=== PATIENT | female | born 1995 | race Caucasian/White ===

== ENCOUNTER 2018-09-06 23:51 | Emergency (ER) | payer OTHER ==
[~2018-09-06] VITALS: Ht 170.2 cm; Wt 97.5 kg
[2018-09-07] MEDS ORDERED: FAMOTIDINE 20 MG (PEPCID) TABLET PO STA (00:23)
[2018-09-07] MEDS ORDERED: LIDOCAINE 2% VISCOUS 15 ML UDC PO ONE (00:30)
[2018-09-07] MEDS ORDERED: KETOROLAC 30 MG/ML VIAL IVP ONE ×2 (00:30→01:30)
[2018-09-07] MEDS ORDERED: ANTACID SUSP 30 ML UDC (MYLANTA) PO ONE (00:30)
--- NOTE | 2018-09-07 00:30 | ED Abdominal Pain ---
General Chief Complaint: Abdominal/GI Problems Stated Complaint: PAIN AROUND BELLY BUTTON Source of Information: Patient, Family (mom) Exam Limitations: No Limitations History of Present Illness Date Seen by Provider: Sep 07, 2018 Time Seen by Provider: 00:16 Initial Comments The patient presents with her mother by private conveyance to the ER with chief complaint. The little abdominal pain sometimes radiating down her right quadrant abdomen. She's expresses intermittently for the past week however the last 2 days, worse. No nausea. Tylenol or broken are not helpful she's not had any to day. She is not taking anything else sides a Zantac this morning which did not help. Her last menstrual period was 2 weeks ago. She doesn't pain seems to be worse at night and has been included with food. In March she was worked up for gallbladder and had a HIDA scan and ultrasound were both negative. No endoscopy or abdominal surgeries. No trauma. She rates the pain as a 6 out of 10 presently. Allergies and Home Medications Allergies Coded Allergies: No Known Drug Allergies (Unverified , 09/07/18) Patient Home Medication List Home Medication List Reviewed: Yes Review of Systems Review of Systems Constitutional: chills; No diaphoresis, No fever, No malaise EENTM: No Blurred Vision, No Double Vision Respiratory: Denies Cough, Denies Shortness of Air Cardiovascular: Denies Chest Pain, Denies Edema Gastrointestinal: See HPI, Abdominal Pain; Denies Constipated, Denies Diarrhea, Denies Nausea Genitourinary: Denies Burning, Denies Discharge Musculoskeletal: No back pain, No joint pain Past [id number] Hx Patient Social History Alcohol Use: Denies Use Recreational Drug Use: No Smoking Status: Never a Smoker Recent Foreign Travel: No Contact w/Someone Who Travel: No Physical Exam Vital Signs Vital Signs - First Documented 09/07/18 00:11 Temp 96.8 Pulse 95 Resp 18 B/P (MAP) 108/67 (81) Pulse Ox 97 O2 Delivery Room Air Capillary Refill : Height/Weight/BMI Height: '" Weight: lbs. oz. kg; BMI Method: General Appearance: WD/WN, no apparent distress HEENT: PERRL/EOMI, pharynx normal Neck: non-tender, full range of motion, supple, normal inspection Respiratory: lungs clear, normal breath sounds, no respiratory distress, no accessory muscle use Cardiovascular: normal peripheral pulses, regular rate, rhythm, no edema Peripheral Pulses: 2+ Dorsalis Pedis (R), 2+ Left Dors-Pedis (L) Gastrointestinal: normal bowel sounds, soft; No guarding, No rebound; tenderness (mild right lower quadrant abdominal tenderness), other (negative psoas sign or rebound tenderness over McBurney's point. Negative for Flowers s ign, Rovsing sign.) Neurologic/Psychiatric: alert, normal mood/affect, oriented x 3 Skin: normal color, warm/dry Progress/Results/Core Measures Results/Orders Lab Results Laboratory Tests Test 09/07/18 00:30 09/07/18 00:48 Range/Units Urine Color YELLOW Urine Clarity SLIGHTLY CLOUDY Urine pH 5 5-9 Urine Specific [place] 1.020 1.016-1.022 Urine Protein NEGATIVE NEGATIVE Urine Glucose (UA) NEGATIVE NEGATIVE Urine Ketones NEGATIVE NEGATIVE Urine Nitrite NEGATIVE NEGATIVE Urine Bilirubin NEGATIVE NEGATIVE Urine Urobilinogen NORMAL NORMAL MG/DL Urine Leukocyte Esterase 3+ H NEGATIVE Urine RBC (Auto) 1+ H NEGATIVE Urine RBC NONE /HPF Urine WBC 2-5 /HPF Urine Squamous Epithelial Cells 5-10 /HPF Urine Crystals NONE /LPF Urine Bacteria LARGE H /HPF Urine Casts NONE /LPF Urine Mucus NEGATIVE /LPF Urine Culture Indicated NO White Blood Count 9.7 4.3-11.0 10^3/uL Red Blood Count 4.34 L 4.35-5.85 10^6/uL Hemoglobin 12.8 11.5-16.0 G/DL Hematocrit 39 35-52 % Mean Corpuscular Volume 89 80-99 FL Mean Corpuscular Hemoglobin 30 25-34 PG Mean Corpuscular Hemoglobin Concent 33 32-36 G/DL Red Cell Distribution Width 13.8 10.0-14.5 % Platelet Count 248 130-400 10^3/uL Mean Platelet Volume 10.1 7.4-10.4 FL Neutrophils (%) (Auto) 63 42-75 % Lymphocytes (%) (Auto) 29 12-44 % Monocytes (%) (Auto) 8 0-12 % Eosinophils (%) (Auto) 1 0-10 % Basophils (%) (Auto) 0 0-10 % Neutrophils # (Auto) 6.1 1.8-7.8 X 10^3 Lymphocytes # (Auto) 2.8 1.0-4.0 X 10^3 Monocytes # (Auto) 0.7 0.0-1.0 X 10^3 Eosinophils # (Auto) 0.1 0.0-0.3 10^3/uL Basophils # (Auto) 0.0 0.0-0.1 10^3/uL Sodium Level 140 135-145 MMOL/L Potassium Level 3.8 3.6-5.0 MMOL/L Chloride Level 104 98-107 MMOL/L Carbon Dioxide Level 25 21-32 MMOL/L Anion Gap 11 5-14 MMOL/L Blood Urea Nitrogen 10 7-18 MG/DL Creatinine 0.66 0.60-1.30 MG/DL Estimat Glomerular Filtration Rate > 60 BUN/Creatinine Ratio 15 Glucose Level 106 H 70-105 MG/DL Calcium Level 9.9 8.5-10.1 MG/DL Corrected Calcium 9.7 8.5-10.1 MG/DL Total Bilirubin 0.4 0.1-1.0 MG/DL Aspartate Amino Transf (AST/SGOT) 14 5-34 U/L Alanine Aminotransferase (ALT/SGPT) 13 0-55 U/L Alkaline Phosphatase 83 40-136 U/L C-Reactive Protein High Sensitivity 0.73 H 0.00-0.50 MG/DL Total Protein 7.0 6.4-8.2 GM/DL Albumin 4.3 3.2-4.5 GM/DL Lipase 14 8-78 U/L My Orders Orders - ETELVINA FLORES Ua Culture If Indicated (09/06/18 23:55) Cbc With Automated Diff (09/07/18 00:21) Comprehensive Metabolic Panel (09/07/18 00:21) Hs C Reactive Protein (09/07/18 00:21) Lipase (09/07/18 00:21) Ketorolac Injection (Toradol Injection) (09/07/18 00:30) Lidocaine 2% Viscous 15 Ml (Xylocaine Vi (09/07/18 00:30) Famotidine Tablet (Pepcid Tablet) (09/07/18 00:23) Antacid Suspension (Mylanta Suspension (09/07/18 00:30) Ketorolac Injection (Toradol Injection) (09/07/18 01:30) Medications Given in ED Current Medications Medications Dose Ordered Sig/Saira Route Start Time Stop Time Status Last Admin Dose Admin Al Hydrox/Mg Hydrox/Simethicone 30 ml ONCE ONCE PO 09/07/18 00:30 09/07/18 00:31 DC 09/07/18 00:29 30 ML Lidocaine HCl 15 ml ONCE ONCE PO 09/07/18 00:30 09/07/18 00:31 DC 09/07/18 00:29 15 ML Vital Signs/I&O 09/07/18 00:11 Temp 96.8 Pulse 95 Resp 18 B/P (MAP) 108/67 (81) Pulse Ox 97 O2 Delivery Room Air Progress Progress Note #1: Time: 00:30 Progress Note Nonsurgical, nonacute abdomen on examination without evidence of mesenteric involvement. We will try a GI cocktail. If that does not help then we'll try Toradol. She has aseptic vital signs. If her lab work is unremarkable including blood urine and lipase etc. then would be reasonable for her to finish working her up with her primary care doctor outpatient. Progress Note #2: Time: 01:44 Progress Note Repeat examination unremarkable. Nonacute abdomen. Mild tenderness around the umbilicus without any mesenteric signs. Vital signs are aseptic. Labs are unremarkable. Patient is looking for a work note so we will provide her with that. Plan to give her a shot of Toradol for her discomfort and instruct her to get some follow-up in the next 2 weeks. Carafate and pantoprazole. Departure Impression Primary Impression: Abdominal pain Qualified Codes: R10.33 - Periumbilical pain Disposition: HOME, SELF-CARE Condition: Improved Departure-Patient Inst. Decision time for Depature: 01:47 Referrals: [facility] (PCP/Family) Primary Care Physician Patient Instructions: Acute Abdomen (Belly Pain), Adult (DC) Add. Discharge Instructions: Avoid spicy greasy foods. Start the Carafate 1 tablet 30 minutes prior to meals and at bedtime for the next 2 weeks. Pantoprazole 1 tablet daily for the next 2-4 weeks. Tylenol 1000 mg every 8 hours as needed for pain. Ibuprofen 800 mg every 8 hours as needed for pain. You may also use antacids, Gas-X, Pepto-Bismol etc. Return to the ER if you experience intractable nausea vomiting, pain or ever especially above 102.5. All discharge instructions reviewed with patient and/or family. Voiced understanding. Scripts Sucralfate (Carafate) 1 Gm Tablet 1 GM PO QIDACHS for 14 Days, #56 TAB 0 Refills Prov: ETELVINA FLORES 09/07/18 Pantoprazole Sodium (Pantoprazole Sodium) 40 Mg Tablet.dr 40 MG PO DAILY for 30 Days, #30 TAB 0 Refills Prov: ETELVINA FLORES 09/07/18 Ondansetron (Ondansetron Odt) 4 Mg Tab.rapdis 4 MG PO Q6H PRN for NAUSEA/VOMITING-1ST LINE, #10 TAB 0 Refills Prov: ETELVINA FLORES 09/07/18 Work/School Note: Work Release Form Date Seen in the Emergency Department: Sep 07, 2018 Return to Work: Sep 09, 2018 Restrictions: No Restrictions ETELVINA FLORES Sep 07, 2018 00:29
[2018-09-07 00:48] LABS: BILIRUBIN,URINE NEGATIVE (NEGATIVE); CLARITY,URINE SLIGHTLY CLOUDY; COLOR,URINE YELLOW; GLUCOSE, URINE (UA) NEGATIVE (NEGATIVE); KETONES,URINE NEGATIVE (NEGATIVE); LEUKOCYTE ESTERASE ,URINE 3+ (NEGATIVE); NITRITE,URINE NEGATIVE (NEGATIVE); PH,URINE 5 (5-9); PROTEIN,URINE NEGATIVE (NEGATIVE); UROBILINOGEN,URINE NORMAL (NORMAL)
[2018-09-07 00:56] LABS: BASOPHILS % (AUTO) 0 % (0-10); EOSINOPHILS # (AUTO) 0.1 10^3/uL (0.0-0.3); EOSINOPHILS % (AUTO) 1 % (0-10); HEMATOCRIT 39 % (35-52); HEMOGLOBIN 12.8 G/DL (11.5-16.0); LYMPHOCYTES # (AUTO) 2.8 X 10^3 (1.0-4.0); LYMPHOCYTES % (AUTO) 29 % (12-44); MEAN CORPUSCULAR HEMOGLOBIN 30 PG (25-34); MEAN CORPUSCULAR HGB CONC 33 G/DL (32-36); MEAN CORPUSCULAR VOLUME 89 FL (80-99); MEAN PLATELET VOLUME 10.1 FL (7.4-10.4); MONOCYTES # (AUTO) 0.7 X 10^3 (0.0-1.0); MONOCYTES % (AUTO) 8 % (0-12); NEUTROPHILS # (AUTO) 6.1 X 10^3 (1.8-7.8); NEUTROPHILS % (AUTO) 63 % (42-75); PLATELET COUNT 248 10^3/uL (130-400); RED CELL DISTRIBUTION WIDTH 13.8 % (10.0-14.5); WHITE BLOOD COUNT 9.7 10^3/uL (4.3-11.0)
[2018-09-07 01:04] LABS: BACTERIA,URINE LARGE /HPF
[2018-09-07 01:16] LABS: ALANINE AMINOTRANSFERASE 13 U/L (0-55); ALBUMIN 4.3 GM/DL (3.2-4.5); ALKALINE PHOSPHATASE 83 U/L (40-136); BILIRUBIN,TOTAL 0.4 MG/DL (0.1-1.0); BUN/CREATININE RATIO 15; CALCIUM 9.9 MG/DL (8.5-10.1); CARBON DIOXIDE 25 MMOL/L (21-32); CHLORIDE 104 MMOL/L (98-107); CREATININE SERUM 0.66 MG/DL (0.60-1.30); GFR ESTIMATED > 60; GLUCOSE 106 MG/DL (70-105); LIPASE 14 U/L (8-78); POTASSIUM 3.8 MMOL/L (3.6-5.0); SODIUM 140 MMOL/L (135-145)
[2018-09-07] MEDS ORDERED: ONDA4TAB11 PO (01:52)
[2018-09-07] MEDS ORDERED: SUCR1TAB36 PO (01:52)
[2018-09-07] MEDS ORDERED: PANT40TA3 PO (01:52)
[2018-09-07 01:58] VITALS: BP 115/85
== END 2018-09-07 02:01 | disposition home or self-care (01) ==
LOC: ER 23:59
DX: R10.33 Periumbilical pain (principal)
CPT/HCPCS: 36415; 80053; 81000; 83690; 85025; 86141; 87088; 99284

== ENCOUNTER → 2019-10-16 | Outpatient (CLI) | payer SELFPAY ==
[~2019-10-16] MED LIST: ONDA4TAB11 PO; PANT40TA3 PO; SUCR1TAB36 PO
--- NOTE | 2019-10-16 16:32 | Diagnostic Imaging Report ---
PROCEDURE: MR imaging of the brain without contrast. TECHNIQUE: Multiplanar, multisequence MR imaging of the brain was performed without contrast. INDICATION: Headaches. COMPARISON: None. FINDINGS: No abnormal intracranial signal. No restricted water diffusion or hemosiderin deposition. Normal morphology including the major midline structures, sella, posterior fossa, and cerebellopontine angle. Normal intracranial flow voids. No hydrocephalus or extra-axial fluid collections. The orbits are unremarkable on this nondedicated exam. Moderate mucosal thickening in the left maxillary sinus. Mastoids are clear. IMPRESSION: 1. Normal MRI of the brain without contrast. No acute findings. 2. Moderate mucosal thickening in the left maxillary sinus. Dictated by: Dictated on workstation # [id number]
--- NOTE | 2019-10-17 09:19 | Diagnostic Imaging Report ---
MRI RT UPPER EXT JOINT W/O Technique: Multiplanar, multisequence MR imaging of the right shoulder was performed without contrast. Comparison: None available. Indication: Right shoulder pain Findings: Rotator cuff: The supraspinatus, infraspinatus, teres minor and subscapularis are all intact. No rotator cuff muscle atrophy or denervation injury. Glenoid labrum: No chondrolabral separation or paralabral cyst. Assessment for nondisplaced labral tear is suboptimal without intra-articular contrast. Long head of biceps: Long head of biceps is normally positioned within the bicipital groove. The intracapsular segment is intact. Bones and cartilage: Humeral head is normal in morphology without fracture or focal osseous lesion. No glenohumeral chondromalacia. The acromioclavicular joint is normal in alignment without significant degenerative change. Soft tissues: No glenohumeral joint effusion. No MRI findings to suggest adhesive capsulitis. No fluid or inflammatory like signal within the subacromial/subdeltoid space to indicate bursitis. IMPRESSION: 1. No rotator cuff tear. 2. Long head of biceps is intact. 3. No fracture or bone contusion. Dictated by: Dictated on workstation # [id number]
== END ==
LOC: RAD 14:14
PROVIDERS: ATTEND Nurse Practitioner Community Health
DX: M25.511 Pain in right shoulder (principal); G89.29 Other chronic pain; J34.89 Other specified disorders of nose and nasal sinuses
CPT/HCPCS: 70551; 73221